=== PATIENT | female | born 1960 | race Caucasian/White ===

== ENCOUNTER 2016-06-27 19:42 | Emergency (ER) | payer SELFPAY ==
[2016-06-27 19:57] VITALS: BP 140/73
[2016-06-27] MEDS ORDERED: Ketorolac 60 MG/2 ML SDV IM ONE (20:30)
[2016-06-27] MEDS ORDERED: Ketorolac 30 MG/ML SDV ONE (20:34)
--- NOTE | 2016-06-28 00:15 | ER ---
CHIEF COMPLAINT: The patient enters the ER [facility] with a chief complaint of headache. She does have a history of headaches. She has not been officially diagnosed with migraines. HISTORY OF PRESENT ILLNESS: As above, history of headaches, not diagnosed with migraine. She does state that she gets a daily headache; however, she has not had a severe headache since at least January. Today, this headache has been going on for about 24 hours. There was no specific event that triggered this that she is aware of. There was no aura that preceded her headache. Her headache is described as frontal and it is bilateral. She takes Excedrin for migraines when her headaches begin, they are usually effective. However, this headache did not respond to that. She did have some Fiorinal around the house that was prescribed about 6 months ago, and she took that again with no relief, so she came to the emergency room [facility]. She has a history of being JU positive. She has had a history of colitis in the past. She is up to date with her colonoscopy. She has not been up to date with her mammogram, she is about a year behind; she will follow up on this on her own. REVIEW OF SYSTEMS: GENERAL: She denies any fever, weight loss, or fatigue. HEENT: Eyes, denies any changes in vision except currently with her headaches; bright lights increase her pain. Ears, nose, and throat; she denies any ear pain, throat pain, or nasal congestion. CARDIOVASCULAR: Denies any chest pain or palpitations. RESPIRATORY: Denies any cough or shortness of breath. GI: Denies any vomiting, diarrhea, constipation, or heartburn. She does have some nausea associated with her headache. : She denies any dysuria. MUSCULOSKELETAL: Denies any joint pain or inflammation. SKIN: Denies any rashes or sores. NEUROLOGIC: Denies any focal weakness or numbness. PSYCHIATRIC: She denies any problems with anxiety or depression. PHYSICAL EXAMINATION: GENERAL: A well-developed, well-nourished female. Alert and oriented x3. In mild-to- moderate distress from headache. VITAL SIGNS: Vital signs upon admission show a blood pressure of 140/73. She is afebrile. She has a pulse of 73 and oxygen saturation 99% on room air. HEENT: Eyes show equal ocular motions intact. Pupils are equally round, reactive to light. Discs are benign. Ears, nose, and throat, TMs are normal. Throat is clear. NECK: No JVD. No bruits. No masses. No thyromegaly. LYMPH: No adenopathy. LUNGS: Clear. HEART: Regular rate and rhythm. No murmurs, rubs, or gallops. ABDOMEN: Soft and benign. No mass or organomegaly. ORTHOPEDICS: Normal gait. Normal muscle tone and strength. No joint inflammation. No restriction of motion. SKIN: No rashes or sores. NEUROLOGIC: Cranial nerves 2-12 to be intact. She has no focal neurologic abnormalities. PSYCHIATRIC: Normal judgment and insight. Memory is intact. Mood is appropriate. ASSESSMENT: 1. Recurrent headaches. 2. JU positive. 3. History of fatty liver with history of atherosclerosis. PLAN: The patient states that she has had an MRI in the past; I do not see this report. She has had a negative CAT scan for her headaches. I went through her lab work in clinic and through the hospital, I do not see baseline cholesterol even though she has some atherosclerotic changes on prior CT scans and a fatty liver as well. So, we will get a fasting cholesterol in the morning. I am going to ask her to get a TSH for both her headaches and her presumed hyperlipidemia. I will repeat her JU profile. Her JU has been positive in the past and also get a sedimentation rate at this time. I also want to get a baseline UA to make sure there are no underlying renal complaints. She has had a history of kidney stones that were calcium oxalate in the past. We will obtain a baseline CBC and BMP as well. I started the patient on Topamax 25 mg p.o. at bedtime for headache prevention, and I will have her follow up in clinic in about 2 weeks to discuss her lab work and if necessary increase her Topamax. GEOVANNY/DELANEY /[id number]
== END 2016-06-27 21:10 | disposition home or self-care (01) ==
LOC: LB.ED 19:42
DX: R51 Headache (principal)
CPT/HCPCS: 96372; 99283; J1885

== ENCOUNTER 2017-02-13 17:48 | Emergency (ER) | payer OTHER ==
[2017-02-13] MEDS ORDERED: Acetaminophen/HYDROcodone 325-5 MG Tab ONE (18:00)
[2017-02-13 18:02] VITALS: BP 154/65
--- NOTE | 2017-02-13 18:03 | EDM.PDOC ---
ED HPI GENERAL MEDICAL PROBLEM - General Chief Complaint: General Stated Complaint: FELL ON ICE Time Seen by Provider: 02/13/17 17:50 Source of Information: Reports: Patient History Limitations: Reports: No Limitations - History of Present Illness INITIAL COMMENTS - FREE TEXT/NARRATIVE: According to patient she claims that he was at work in [place] and she came out to the parking lot around 4:30 PM and slipped on ice and fell forward and landed on the ground. She felt sharp pain in the palm of her left hand. Since then cannot make a fist of left hand. Also complains of pain over the metacarpals of left hand. No swelling or bruising of the hand. presently rat her pain at 6/10. No other injures. Onset: Today Onset Date: 02/13/17 Onset Time: 16:30 Location: Reports: Upper Extremity, Left Quality: Reports: Ache Severity: Moderate Improves with: Reports: None Worsens with: Reports: None Associated Symptoms: Denies: Confusion, Chest Pain, Cough, Diaphoresis, Fever/ Chills, Headaches, Nausea/Vomiting, Rash, Shortness of Breath, Syncope, Weakness - Related Data Allergies Allergy/AdvReac Type Severity Reaction Status Date / Time corn meal Allergy Unknown Hives Uncoded 06/28/16 11:27 Home Meds: Home Meds Codeine/Butalbital/ASA/Caffein [Ascomp with Codeine] 1 each PO Q6HR PRN [History] Omeprazole 20 mg PO DAILY 08/23/15 [History] Ranitidine HCl [Zantac] 150 mg PO BID 08/23/15 [History] Acetaminophen/Caffeine [Excedrin Tension Headache] 1 tab PO Q6HR PRN 12/01/15 [ History] Past Medical History HEENT History: Reports: Impaired Vision Gastrointestinal History: Reports: GERD, Other (See Below) Other Gastrointestinal History: has been having very freq diarrheal stools Genitourinary History: Reports: 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: Neurological History: Reports: Headaches, Chronic, Migraines - Infectious Disease History Infectious Disease History: Reports: Chicken Pox, Measles, Mumps - Past Surgical History Female Surgical History: Reports: Section, Endometrial Ablation Social & Family History - Family History Family Medical History: Noncontributory - Tobacco Use Smoking Status *Q: Former Smoker Years of Tobacco use: 2 Packs/Tins Daily: 0.5 Used Tobacco, but Quit: Yes Month Tobacco Last Used: 1978 Second Hand Smoke Exposure: No - Caffeine Use Caffeine Use: Reports: Coffee Caffeine Use Comment: Occasional - Alcohol Use Days Per Week of Alcohol Use: 0 Number of Drinks Per Day: 1 Total Drinks Per Week: 0 - Recreational Drug Use Recreational Drug Use: No ED ROS GENERAL - Review of Systems Review Of Systems: See Below Constitutional: Denies: Fever, Chills HEENT: Denies: Rhinitis, Sinus Problem, Throat Pain, Throat Swelling Respiratory: Denies: Cough, Sputum Cardiovascular: Denies: Chest Pain, Lightheadedness GI/Abdominal: Denies: Abdominal Pain, Nausea, Vomiting : Denies: Flank Pain, Frequency 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: Reports: Hand Pain. Denies: Joint Pain, Joint Swelling Skin: Denies: Bruising, Pruritis, Rash ED EXAM, GENERAL - Physical Exam Exam: See Below Exam Limited By: No Limitations General Appearance: Alert, WD/WN, No Apparent Distress Eye Exam: Bilateral Eye: EOMI, PERRL Ears: Normal External Exam, Normal Canal, Hearing Grossly Normal, Normal TMs Ear Exam: Bilateral Ear: Auricle Normal, Canal Normal, TM normal Nose: Normal Inspection, Normal Mucosa, No Blood Throat/Mouth: Normal Inspection, Normal Lips, Normal Teeth, Normal Gums, Normal Oropharynx, Normal Voice, No Airway Compromise Head: Atraumatic, Normocephalic Neck: Normal Inspection, Supple, Non-Tender, Full Range of Motion Respiratory/Chest: No Respiratory Distress, Lungs Clear, Normal Breath Sounds, No Accessory Muscle Use, Chest Non-Tender Cardiovascular: Normal Peripheral Pulses, Regular Rate, Rhythm, No Edema, No Gallop, No JVD, No Murmur, No Rub Extremities: Normal Inspection, Normal Range of Motion, Other. No: Joint Swelling (left hand: ther eis n obvious deformity or swelling of the finger or hand. Pt cannot make fist. Tender over the 3rd and 4th metacarpals of left hand. no crepitus felt.) Neurological: Alert, Oriented Course - Vital Signs Text/Narrative:: Xray of left hand done in the emergency room today appears normal. She basically has pain from suddenly impact of the hand against the ground. Advised to alternate warm and cold every 2-3 hrs. Pt has severe gastritis. Hence I have given her vicodin from the emergency room to use every 6 hrs as needed for pain. the pain should gradually improve. Okay to use the hand. Followup in clinic if not better in 1-2 days. Last Recorded V/S: Last Vital Signs Temp Pulse 63 02/13/17 17:56 Resp BP 154/65 H 02/13/17 17:56 Pulse Ox 98 02/13/17 17:56 - Orders/Labs/Meds Orders: Active Orders 24 hr Category Date Time Status Hand Comp Min 3V Lt [CR] Stat Exams 02/13/17 17:57 Ordered Departure - Departure Time of Disposition: 18:30 Disposition: Home, Self-Care 01 Condition: Fair Clinical Impression: Hand pain, left - Discharge Information Instructions: Acetaminophen; Hydrocodone tablets or capsules Referrals: PCP,None [Primary Care Provider] - Forms: ED Department Discharge Additional Instructions: Activity as tolerated. Work on increasing movement of fingers to affected hand. May apply heat and ice, alternating, intermittently to help with swelling and pain present. Take provided Vicodin as directed: 1 tablet by mouth every 6 hours as needed for pain. Follow up with regular provider as needed. Call with any questions. - Problem List & Annotations (1) Hand pain, left SNOMED Code(s): 17318917 Code(s): M79.642 - PAIN IN LEFT HAND Status: Acute Current Visit: Yes - Problem List Review Problem List Initiated/Reviewed/Updated: Yes - My Orders Last 24 Hours: My Active Orders 02/13/17 17:57 Hand Comp Min 3V Lt [CR] Stat - Assessment/Plan Last 24 Hours: My Active Orders 02/13/17 17:57 Hand Comp Min 3V Lt [CR] Stat Assessment:: Left hand pain Plan: Xray of left hand done in the emergency room today appears normal. She basically has pain from suddenly impact of the hand against the ground. Advised to alternate warm and cold every 2-3 hrs. Pt has severe gastritis. Hence I have given her vicodin from the emergency room to use every 6 hrs as needed for pain. the pain should gradually improve. Okay to use the hand. Followup in clinic if not better in 1-2 days.
--- NOTE | 2017-02-13 20:24 | CR ---
DATE OF SERVICE: 02/13/2017 CLINICAL DATA: Left hand pain. LEFT HAND: There are mild osteoarthritic changes involving multiple joints. No acute fracture or dislocation. No lytic or blastic bone lesions. [id number] [facility]
== END 2017-02-13 18:33 | disposition home or self-care (01) ==
LOC: LB.ED 17:48
DX: M79.642 Pain in left hand (principal); K29.70 Gastritis, unspecified, without bleeding; Z91.018 Allergy to other foods; Z87.891 Personal history of nicotine dependence; W00.0XXA Fall on same level due to ice and snow, initial encounter
CPT/HCPCS: 73130; 99283; A9270

== ENCOUNTER 2018-06-23 17:26 | Observation (INO) | payer BC ==
[2018-06-23] MEDS ORDERED: Lidocaine 2% 10 ML Amp ONE (18:00)
[2018-06-23] MEDS ORDERED: HYDROmorphone 2 MG/ML SDV IM ONE (18:01)
[2018-06-23] MEDS ORDERED: Ondansetron 4 MG/2 ML SDV IM ONE (18:02)
--- NOTE | 2018-06-23 18:21 | EDM.PDOC ---
ED HPI GENERAL MEDICAL PROBLEM - General Stated Complaint: TOOTH PAIN Time Seen by Provider: 06/23/18 17:45 Source of Information: Reports: Patient History Limitations: Reports: No Limitations - History of Present Illness INITIAL COMMENTS - FREE TEXT/NARRATIVE: According to patient she has been having right upper molar toothache since yesterday. Pt claims that pain has gradually got worse today, and has been rating it at 10/10 constant. Claims she has had some fever today. No facial swelling. No earache. Pt claims she has been using benzocaine Oragel and Listerine mouth wash and is not helping. Pt claims she has been feeling sick and vomiting since today afternoon.Not able to keep anything down. Pt constantly wretching in the emergency room. Epigastric discomfort. Onset: Gradual Onset Date: 06/22/18 Duration: Getting Worse Location: Reports: Other (tooth ache) Severity: Severe Improves with: Reports: None Worsens with: Reports: None Associated Symptoms: Reports: Fever/Chills, Nausea/Vomiting. Denies: Confusion , Chest Pain, Cough, Diaphoresis, Headaches, Rash, Seizure, Shortness of Breath , Syncope, Weakness - Related Data Allergies Allergy/AdvReac Type Severity Reaction Status Date / Time corn meal Allergy Unknown Hives Uncoded 06/28/16 11:27 Home Meds: Home Meds Codeine/Butalbital/ASA/Caffein [Ascomp with Codeine] 1 each PO Q6HR PRN [History] Omeprazole 20 mg PO DAILY 08/23/15 [History] Ranitidine HCl [Zantac] 150 mg PO BID 08/23/15 [History] Acetaminophen/Caffeine [Excedrin Tension Headache] 1 tab PO Q6HR PRN 12/01/15 [ History] Past Medical History HEENT History: Reports: Impaired Vision Gastrointestinal History: Reports: GERD Other Gastrointestinal History: has been having very freq diarrheal stools Genitourinary History: Reports: Renal Calculus, Urinary Incontinence 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: 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 History: Reports: Other (See Below) Other 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 History: Hx back injury Neurological History: Reports: Headaches, Chronic, Migraines - Infectious Disease History Infectious Disease History: Reports: Chicken Pox, Measles, Mumps - Past Surgical History Female Surgical History: Reports: Section, Endometrial Ablation Social & Family History - Family History Family Medical History: Noncontributory - Caffeine Use Caffeine Use: Reports: Coffee Caffeine Use Comment: Occasional ED ROS GENERAL - Review of Systems Review Of Systems: See Below Constitutional: Denies: Fever, Chills HEENT: Reports: Dental Pain. Denies: Ear Pain, Rhinitis, Throat Pain, Throat Swelling Respiratory: Denies: Shortness of Breath, Cough, Sputum Cardiovascular: Denies: Chest Pain, Lightheadedness GI/Abdominal: Reports: Vomiting. Denies: Abdominal Pain, Constipation, Diarrhea , Nausea : Denies: Dysuria, Frequency 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: Denies: Joint Pain, Joint Swelling Skin: Denies: Bruising, Pruritis, Rash ED EXAM, GENERAL - Physical Exam Exam: See Below Exam Limited By: No Limitations General Appearance: Alert, WD/WN, Moderate Distress Eye Exam: Bilateral Eye: EOMI, PERRL Ears: Normal External Exam, Normal Canal, Hearing Grossly Normal, Normal TMs Ear Exam: Bilateral Ear: Auricle Normal, Canal Normal, TM normal Nose: Normal Inspection, Normal Mucosa, No Blood Throat/Mouth: Normal Inspection, Normal Lips, Other (poor oral hygiene. The right upper molar hs severe peridontal diseas. gums swollen and the root appears exposed. Also there is caries of the the tooth.) Head: Atraumatic, Normocephalic. No: Facial Swelling, Facial Tenderness Neck: Normal Inspection, Supple, Non-Tender, Full Range of Motion Respiratory/Chest: No Respiratory Distress, Lungs Clear, Normal Breath Sounds, No Accessory Muscle Use, Chest Non-Tender Cardiovascular: Normal Peripheral Pulses, Regular Rate, Rhythm, No Edema, No Gallop, No JVD, No Murmur, No Rub GI/Abdominal: Normal Bowel Sounds, Soft, No Organomegaly, No Distention, No Abnormal Bruit, No Mass, Tender (epigastric discomfort). No: Guarding, Rigid, Rebound Extremities: Normal Inspection, Normal Range of Motion, Non-Tender, Normal Capillary Refill, No Pedal Edema Neurological: Alert, Oriented Course - Vital Signs Text/Narrative:: Pt has infected caries of the right upper molar with periodontal disease with severe tooth pain. She did receive Dilaudid 1mg IM along with zofran 4mg in the emergency room. Pt still in pain. Pt has very poor oral hygiene, with periodontal disease of the right upper molar with caries. There is possible exposure of the root causing her pain. Pt white count is normal at 3.7. She probably has pain induced vomiting. Her BMP shows normal creat and BUN, but her potassium is low at 2.7. Hence patient has been admitted for observation for potassium replenishment over night. Will started her on NACL with K 40 meq at 125cc/hr. Also will have her on Dilaudid every 6 hrs and Zofran for nausea. As she has been vomiting all day and her stomach is empty, will have Protonix 40mg Iv given. Will encourage oral fluids as tolerated. Anticipate discharge in am. - Orders/Labs/Meds Orders: Active Orders 24 hr Category Date Time Status BASIC METABOLIC PANEL,BMP [CHEM] Stat Lab 06/23/18 18:05 Received Labs: Laboratory Tests 06/23/18 Range/Units 18:05 WBC 3.6 L D (4.0-11.0) K/uL RBC 5.01 (3.80-5.80) M/uL Hgb 15.4 (11.5-16.5) g/dL Hct 45.7 (37.0-47.0) % MCV 91 (76-96) fL MCH 30.7 (27.0-32.0) pg MCHC 33.7 (31.0-35.0) g/dL RDW 13.1 (11.0-16.0) % Plt Count 196 D (150-500) K/uL MPV 10.0 (6.0-10.0) fL Neut % (Auto) 84.0 H (45.0-70.0) % Lymph % (Auto) 14.8 L (20.0-40.0) % [place] % (Auto) 0.6 L (3.0-10.0) % Eos % (Auto) 0.3 L (1.0-5.0) % Baso % (Auto) 0.3 (0.0-0.5) % Neut # (Auto) 3.01 (2.00-7.50) K/uL Lymph # (Auto) 0.53 L (1.50-4.00) K/uL [place] # (Auto) 0.02 L (0.20-0.80) K/uL Eos # (Auto) 0.01 L (0.04-0.40) K/uL Baso # (Auto) 0.01 L (0.02-0.10) K/uL Meds: Medications Discontinued Medications Generic Name Dose Route Start Last Admin Trade Name Teofilo PRN Reason Stop Dose Admin Hydromorphone HCl 1 mg 06/23/18 18:01 06/23/18 18:17 Dilaudid IM 06/23/18 18:02 1 mg ONETIME ONE Administration Ondansetron HCl 4 mg 06/23/18 18:02 06/23/18 18:16 Zofran IM 06/23/18 18:03 4 mg ONETIME ONE Administration Departure - Departure Time of Disposition: 18:30 Disposition: Refer to Observation Condition: Fair Clinical Impression: Hypokalemia due to loss of potassium, Tooth ache - Discharge Information *PRESCRIPTION DRUG MONITORING PROGRAM REVIEWED*: Not Applicable *COPY OF PRESCRIPTION DRUG MONITORING REPORT IN PATIENT [place]ANTEL[place]: Not Applicable - Problem List & Annotations (1) Hypokalemia due to loss of potassium SNOMED Code(s): 07782839 Code(s): E87.6 - HYPOKALEMIA Status: Acute (2) Tooth ache SNOMED Code(s): 16451506 Code(s): K08.89 - OTHER SPECIFIED DISORDERS OF TEETH AND SUPPORTING STRUCTURES Status: Acute - Problem List Review Problem List Initiated/Reviewed/Updated: Yes - My Orders Last 24 Hours: My Active Orders 06/23/18 18:05 BASIC METABOLIC PANEL,BMP [CHEM] Stat - Assessment/Plan Last 24 Hours: My Active Orders 06/23/18 18:05 BASIC METABOLIC PANEL,BMP [CHEM] Stat Assessment:: Right upper molar tooth ache Pain induced vomiting with hypokalemia Plan: Pt has infected caries of the right upper molar with periodontal disease with severe tooth pain. She did receive Dilaudid 1mg IM along with zofran 4mg in the emergency room. Pt still in pain. Pt has very poor oral hygiene, with periodontal disease of the right upper molar with caries. There is possible exposure of the root causing her pain. Pt white count is normal at 3.7. She probably has pain induced vomiting. Her BMP shows normal creat and BUN, but her potassium is low at 2.7. Hence patient has been admitted for observation for potassium replenishment over night. Will started her on NACL with K 40 meq at 125cc/hr. Also will have her on Dilaudid every 6 hrs and Zofran for nausea. As she has been vomiting all day and her stomach is empty, will have Protonix 40mg Iv given. Will encourage oral fluids as tolerated. Anticipate discharge in am.
[2018-06-23] MEDS ORDERED: HYDROmorphone 2 MG/ML Syringe IV PRN (18:44)
[2018-06-23] MEDS ORDERED: Promethazine 12.5 MG in Sodium Chloride 0.9% 50 ML IV ONE (19:00)
[2018-06-23] MEDS: Pantoprazole 40 MG in Sodium Chloride 0.9% 100 ML IV ONE ×2 (19:30→20:02)
[2018-06-23] MEDS: Sodium Chloride 0.9% with KCl 1,000 ML IV SCH (19:45)
[2018-06-23] MEDS: Ondansetron 4 MG/2 ML SDV IVPUSH SCH (20:04)
[2018-06-23] MEDS: Ketorolac 30 MG/ML SDV IVPUSH PRN (22:51)
[2018-06-24] MEDS: Ondansetron 4 MG/2 ML SDV IVPUSH SCH ×3 (01:12→13:00)
[2018-06-24] MEDS: Sodium Chloride 0.9% 10 ML Syringe FLUSH PRN ×2 (01:12→03:47)
[2018-06-24] MEDS: Sodium Chloride 0.9% 1,000 ML IV ONE ×2 (02:25→12:45)
[2018-06-24] MEDS ORDERED: Levofloxacin/Dextrose 5%-Water 100 ML IV ONE (03:10)
[2018-06-24] MEDS: Levofloxacin/Dextrose 5%-Water 500 MG in Premix Bag 1 BAG IV ONE ×2 (03:17→03:49)
[2018-06-24] MEDS ORDERED: Levofloxacin/Dextrose 5%-Water 500 MG in Premix Bag 1 BAG IV ONE (03:48)
[2018-06-24] MEDS: Sodium Chloride 0.9% with KCl 1,000 ML IV SCH (04:26)
[2018-06-24] MEDS: Ketorolac 30 MG/ML SDV IVPUSH PRN (07:53)
--- NOTE | 2018-06-24 08:28 | CR ---
Date of Service: 06/24/18 Clinical Data: PA AND LATERAL CHEST No priors. The heart size is normal. The lungs are clear. No pneumothorax. No pleural effusions. No evidence of acute intrathoracic disease. [id number] [facility]
--- NOTE | 2018-06-24 08:40 | CT ---
Date of Service: 06/24/18 Clinical Data: UNENHANCED ABDOMEN AND PELVIC CT: Multislice acquisition through the abdomen and pelvis without IV or oral contrast was performed. Comparison is made to a prior unenhanced abdomen and pelvic CT dated 12/07/15. There are linear densities in both lung bases consistent with linear atelectasis or fibrosis. The lung bases are otherwise clear. The heart size is normal. No pericardial effusion. The unenhanced liver appears normal. No focal hepatic lesions. The gallbladder is mildly distended. No calcified gallstones. No pericholecystic fluid. The spleen appears normal. The pancreas appears normal. The right and left adrenals appear normal. The right and left kidneys appear normal. No nephrocalcinosis or nephrolithiasis. No hydronephrosis or hydroureter. The bladder is fluid filled and appears normal. No evidence of appendicitis. There is mild diverticulosis of the sigmoid colon. No evidence of diverticulitis. There is moderate amount of stool noted within the sigmoid colon and rectum. There is apparent mild mural thickening of the ascending and transverse colon. This is probably related to nondistention. Colitis should at least be considered. No free air. No free fluid. No dilated loops of bowel. No adenopathy. No aortic aneurysm. There is a ventral hernia within the midline of the anterior abdominal wall above the level of the umbilicus containing fat. No other significant findings. [id number] [facility]
--- NOTE | 2018-06-24 12:20 | CT ---
DATE OF SERVICE: 06/24/18 CLINICAL DATA: Right maxillary pain. FACIAL CT: Multislice axial acquisition was performed. Axial images and sagittal and coronal reformations are reviewed. The right maxillary sinus is filled with heterogenous soft tissue density material that does extend into the nasal cavity on the right consistent with sinusitis or an antrochoanal polyp. The right ethmoid sinuses are also partially opacified and contain a couple of air-fluid levels consistent with sinusitis. There is some mucosal thickening of the right frontal sinus. The left maxillary and sphenoid sinuses are clear. There is minimal deviation of the nasal septum to the left. There is soft tissue swelling of the middle and inferior turbinates. No osseous abnormalities. The globes and orbital contents appear intact. No other significant findings. [id number] [facility]
[2018-06-24] MEDS ORDERED: Sodium Chloride 0.9% 1,000 ML IV SCH (12:30)
[2018-06-24] MEDS ORDERED: Ampicillin/Sulbactam Na 3 GM in Sodium Chloride 0.9% 100 ML IV ONE (12:30)
[2018-06-24] MEDS ORDERED: Ampicillin/Sulbactam Na 3 GM Vial ONE (12:33)
--- NOTE | 2018-06-24 13:23 | PCM.DCSUM1 ---
Discharge Summary - Hospital Course Free Text/Narrative:: Pt was admitted last evening with diagnosis of vomiting with hypokalemia, with right upper molar dental pain. Pt's initial white count was 3.7K with normal rest of the CBC. Also her BMP was stable other than potassium of 2.7, which probably was related to her vomiting. Pt was afebrile. Pt was started on NACL with potassium 40meq at 125cc/hr.Also patient was placed on toradol 30mmg IV TID and dilaudid 0.5mg TID for pain control. Plan was to correct her Potassium and discharge in Am for dental evaluation. Apparently, on 06/24/18, around 2AM in the morning patient had her Blood pressure drop to 84/48mmhg, patient was alert and oriented, but pressure was not improving. She did receive bolus of 1 litre NS, and did get Chest x-ray, Ct abdomen ( As patient had epigastric pain) , UA, Blood cultures and lactic acid, looking for any other source of infection. Apparently all the workup was negative. And her lactic acid was mildly elevated at 1.94. Pt was continued on fluids. Also she did receive levaquin 500mg IV. Apparently on morning rounds, pt claims she feels fine, but very tired and exhausted, still rating her pain at 5/10 in her right upper molar. Vitals stable other then her BP is still running low around 90/50mmhg. My first feeling was , hypotension related to pain meds. So IV pain meds were discontinued. As the only part of the body not worked up was her face with her only c/o being right jaw pain, I did order yong-maxillary CT and also repeat CBC and Lactic acid. Pt's CBC was up from 3.7K to 34K and also her differential showed neutro 66% with 30 % bandemia. Also her facial CT shows right dental abscess in the right upper molar region. Apparently patient has developed sepsis from the right molar dental abscess. Results discussed with patient and spouse, recommended transfer to higher level or care. She was given bolus of NS 1 litre and started on NS at 200cc/hr.Also started on Unasyn 3gm IV. I did contact [facility] and discuss patient with hospitalist Dr. Lucero and ENT surgeon Dr. Santana. Apparently Dr. Santana's recommendation was to transfer patient to a facility with oral-maxillary surgeon. I did contact [facility] and discuss patient with Dr. Reid, the hospitalist international organizer. He did agree to accept patient. Pt will be transferred by [facility].Pt is hemodynamically stable on Iv fluids at the time of transfer. Further care per Dr. Reid. Brief History: Presented to [facility] room yesterday with right sided dental pain with vomiting. Kindly see H&P for details. Diagnosis: Stroke: No - Discharge Data Discharge Date: 06/24/18 Discharge Disposition: DC/Tfer to Acute Hospital 02 Condition: Good - Discharge Diagnosis/Problem(s) (1) Hypokalemia due to loss of potassium SNOMED Code(s): 62725090 ICD Code: E87.6 - HYPOKALEMIA Status: Acute Current Visit: No (2) Tooth ache SNOMED Code(s): 92230258 ICD Code: K08.89 - OTHER SPECIFIED DISORDERS OF TEETH AND SUPPORTING STRUCTURES Status: Acute Current Visit: No (3) Sepsis SNOMED Code(s): 35391304 ICD Code: A41.9 - SEPSIS, UNSPECIFIED ORGANISM Status: Acute Current Visit: Yes (4) Dental abscess SNOMED Code(s): 673657683 ICD Code: K04.7 - PERIAPICAL ABSCESS WITHOUT SINUS Status: Acute Current Visit: Yes - Patient Instructions Diet: NPO - Discharge Plan *PRESCRIPTION DRUG MONITORING PROGRAM REVIEWED*: Not Applicable *COPY OF PRESCRIPTION DRUG MONITORING REPORT IN PATIENT SHANTELLE: Not Applicable Forms: ED Department Discharge Referrals: PCP,None [Primary Care Provider] - - Discharge Summary/Plan Comment DC Time >30 min.: Yes Discharge Summary/Plan Comment: Transferred to [facility] by [employer]. - General Info Subjective Update: Pt claims she feel weak and tired. Still rating her pain at 5/10 in her right jaw. Afebrile. Functional Status: Reports: Urinating - Review of Systems General: Reports: Weakness, Fatigue, Malaise. Denies: Fever, Night Sweats, Appetite HEENT: Reports: Other (dental pain). Denies: Headaches, Sinus Congestion, Sore Throat, Rhinitis Pulmonary: Denies: Shortness of Breath, Cough, Sputum, Hemoptysis Cardiovascular: Denies: Chest Pain, Lightheadedness Gastrointestinal: Reports: Vomiting. Denies: Abdominal Pain, Diarrhea, Nausea Genitourinary: Denies: Dysuria, Frequency, Burning 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: Denies: Shoulder Pain, Joint Pain, Joint Swelling Skin: Denies: Dryness, Bruising, Pruritis Neurological: Denies: Confusion, Dizziness, Headache, Numbness, Tingling - Patient Data Vitals - Most Recent: Last Vital Signs Temp 98.7 F 06/24/18 07:52 Pulse 106 H 06/24/18 07:52 Resp 17 06/24/18 07:52 BP 90/54 L 06/24/18 07:52 Pulse Ox 96 06/24/18 07:52 Weight - Most Recent: 66.497 kg I&O - Last 24 hours: Intake & Output 06/23/18 06/24/18 06/24/18 22:59 06:59 14:59 Intake Total 2975 Output Total 350 Balance 2625 Lab Results - Last 24 hrs: Laboratory Results - last 24 hr 06/23/18 06/23/18 06/24/18 Range/Units 18:05 18:05 01:50 WBC 3.6 L D (4.0-11.0) K/uL RBC 5.01 (3.80-5.80) M/uL Hgb 15.4 (11.5-16.5) g/dL Hct 45.7 (37.0-47.0) % MCV 91 (76-96) fL MCH 30.7 (27.0-32.0) pg MCHC 33.7 (31.0-35.0) g/dL RDW 13.1 (11.0-16.0) % Plt Count 196 D (150-500) K/uL MPV 10.0 (6.0-10.0) fL Neut % (Auto) 84.0 H (45.0-70.0) % Lymph % (Auto) 14.8 L (20.0-40.0) % [place] % (Auto) 0.6 L (3.0-10.0) % Eos % (Auto) 0.3 L (1.0-5.0) % Baso % (Auto) 0.3 (0.0-0.5) % Neut # (Auto) 3.01 (2.00-7.50) K/uL Lymph # (Auto) 0.53 L (1.50-4.00) K/uL [place] # (Auto) 0.02 L (0.20-0.80) K/uL Eos # (Auto) 0.01 L (0.04-0.40) K/uL Baso # (Auto) 0.01 L (0.02-0.10) K/uL Add Manual Diff Neutrophils % (Manual) (45.0-70.0) % Band Neutrophils % % Lymphocytes % (Manual) (20.0-40.0) % Monocytes % (Manual) (3.0-10.0) % Platelet Estimate Sodium 146 H (136-145) mmol/L Potassium 2.7 L* D (3.5-5.1) mmol/L Chloride 104 (98-107) mmol/L Carbon Dioxide 20.8 L D (21.0-32.0) mmol/L Anion Gap 23.9 H (5.0-15.0) mmol/L BUN 17 (8-26) mg/dL Creatinine 0.98 (0.55-1.02) mg/dL Est Cr Clr Drug Dosing TNP Estimated GFR (MDRD) 58 L (>60) MLS/MIN BUN/Creatinine Ratio 17.3 (6-25) Glucose 141 H D (74-100) mg/dL Lactic Acid (0.90-1.70) mmol/L Calcium 8.9 (8.5-10.1) mg/dL Troponin I < 0.017 (0.000-0.060) ng/mL Urine Color Urine Appearance (CLEAR) Urine pH (5.0-8.0) Ur Specific [place] (1.003-1.030) Urine Protein (NEGATIVE) mg/dL Urine Glucose (UA) (NEGATIVE) mg/dL Urine Ketones (NEGATIVE) mg/dL Urine Occult Blood (NEGATIVE) Urine Nitrite (NEGATIVE) Urine Bilirubin (NEGATIVE) Urine Urobilinogen (0.2-1.0) E.U./dL Ur Leukocyte Esterase (NEGATIVE) Urine RBC /HPF Urine WBC /HPF Ur Squamous Epith Cells /HPF Urine Bacteria /HPF Hyaline Casts /HPF 06/24/18 06/24/18 06/24/18 Range/Units 01:50 02:31 07:10 WBC (4.0-11.0) K/uL RBC (3.80-5.80) M/uL Hgb (11.5-16.5) g/dL Hct (37.0-47.0) % MCV (76-96) fL MCH (27.0-32.0) pg MCHC (31.0-35.0) g/dL RDW (11.0-16.0) % Plt Count (150-500) K/uL MPV (6.0-10.0) fL Neut % (Auto) (45.0-70.0) % Lymph % (Auto) (20.0-40.0) % [place] % (Auto) (3.0-10.0) % Eos % (Auto) (1.0-5.0) % Baso % (Auto) (0.0-0.5) % Neut # (Auto) (2.00-7.50) K/uL Lymph # (Auto) (1.50-4.00) K/uL [place] # (Auto) (0.20-0.80) K/uL Eos # (Auto) (0.04-0.40) K/uL Baso # (Auto) (0.02-0.10) K/uL Add Manual Diff Neutrophils % (Manual) (45.0-70.0) % Band Neutrophils % % Lymphocytes % (Manual) (20.0-40.0) % Monocytes % (Manual) (3.0-10.0) % Platelet Estimate Sodium 145 (136-145) mmol/L Potassium 4.3 D (3.5-5.1) mmol/L Chloride 108 H (98-107) mmol/L Carbon Dioxide 21.5 (21.0-32.0) mmol/L Anion Gap 19.8 H (5.0-15.0) mmol/L BUN 22 D (8-26) mg/dL Creatinine 1.07 H (0.55-1.02) mg/dL Est Cr Clr Drug Dosing 47.99 Estimated GFR (MDRD) 53 L (>60) MLS/MIN BUN/Creatinine Ratio 20.6 (6-25) Glucose 124 H (74-100) mg/dL Lactic Acid 1.94 H (0.90-1.70) mmol/L Calcium 7.4 L (8.5-10.1) mg/dL Troponin I (0.000-0.060) ng/mL Urine Color Yellow Urine Appearance Clear (CLEAR) Urine pH 5.5 (5.0-8.0) Ur Specific [place] 1.020 (1.003-1.030) Urine Protein 100 H (NEGATIVE) mg/dL Urine Glucose (UA) Negative (NEGATIVE) mg/dL Urine Ketones Trace H (NEGATIVE) mg/dL Urine Occult Blood Negative (NEGATIVE) Urine Nitrite Positive H (NEGATIVE) Urine Bilirubin Small H (NEGATIVE) Urine Urobilinogen 0.2 (0.2-1.0) E.U./dL Ur Leukocyte Esterase Negative (NEGATIVE) Urine RBC Not seen /HPF Urine WBC Not seen /HPF Ur Squamous Epith Cells Few /HPF Urine Bacteria Few /HPF Hyaline Casts Few /HPF 06/24/18 06/24/18 Range/Units 11:50 11:50 WBC 34.1 H* D (4.0-11.0) K/uL RBC 3.90 (3.80-5.80) M/uL Hgb 12.0 D (11.5-16.5) g/dL Hct 36.4 L D (37.0-47.0) % MCV 93 (76-96) fL MCH 30.8 (27.0-32.0) pg MCHC 33.0 (31.0-35.0) g/dL RDW 13.4 (11.0-16.0) % Plt Count 172 (150-500) K/uL MPV 10.3 H (6.0-10.0) fL Neut % (Auto) (45.0-70.0) % Lymph % (Auto) (20.0-40.0) % [place] % (Auto) (3.0-10.0) % Eos % (Auto) (1.0-5.0) % Baso % (Auto) (0.0-0.5) % Neut # (Auto) (2.00-7.50) K/uL Lymph # (Auto) (1.50-4.00) K/uL [place] # (Auto) (0.20-0.80) K/uL Eos # (Auto) (0.04-0.40) K/uL Baso # (Auto) (0.02-0.10) K/uL Add Manual Diff Yes Neutrophils % (Manual) 66.0 (45.0-70.0) % Band Neutrophils % 30.0 % Lymphocytes % (Manual) 1.0 L (20.0-40.0) % Monocytes % (Manual) 3.0 (3.0-10.0) % Platelet Estimate Adequate Sodium (136-145) mmol/L Potassium (3.5-5.1) mmol/L Chloride (98-107) mmol/L Carbon Dioxide (21.0-32.0) mmol/L Anion Gap (5.0-15.0) mmol/L BUN (8-26) mg/dL Creatinine (0.55-1.02) mg/dL Est Cr Clr Drug Dosing Estimated GFR (MDRD) (>60) MLS/MIN BUN/Creatinine Ratio (6-25) Glucose (74-100) mg/dL Lactic Acid 3.64 H (0.90-1.70) mmol/L Calcium (8.5-10.1) mg/dL Troponin I (0.000-0.060) ng/mL Urine Color Urine Appearance (CLEAR) Urine pH (5.0-8.0) Ur Specific [place] (1.003-1.030) Urine Protein (NEGATIVE) mg/dL Urine Glucose (UA) (NEGATIVE) mg/dL Urine Ketones (NEGATIVE) mg/dL Urine Occult Blood (NEGATIVE) Urine Nitrite (NEGATIVE) Urine Bilirubin (NEGATIVE) Urine Urobilinogen (0.2-1.0) E.U./dL Ur Leukocyte Esterase (NEGATIVE) Urine RBC /HPF Urine WBC /HPF Ur Squamous Epith Cells /HPF Urine Bacteria /HPF Hyaline Casts /HPF JOSE Results - Last 24 hrs: Microbiology 06/24/18 01:50 Influenza Type A Antigen Screen - Final Nasal, Unspecified NEGATIVE INFLUENZA A VIRUS AG Influenza Type B Antigen Screen - Final NEGATIVE INFLUENZA B VIRUS AG Med Orders - Current: Current Medications Hydromorphone HCl (Dilaudid) 1 mg IV Q6H PRN PRN Reason: Pain (severe 7-10) Potassium Chloride/Sodium Chloride (Normal Saline With 40 Meq Kcl) 1,000 mls @ 125 mls/hr IV ASDIRECTED KIMBERLEY Last Admin: 06/24/18 04:26 Dose: 125 mls/hr Sodium Chloride (Normal Saline) 1,000 mls @ 200 mls/hr IV ASDIRECTED KIMBERLEY Last Admin: 06/24/18 12:20 Dose: 200 mls/hr Ampicillin Sodium/Sulbactam (Sodium 3 gm/ Sodium Chloride) 100 mls @ 100 mls/ hr IV ONETIME ONE Stop: 06/24/18 13:29 Ketorolac Tromethamine (Toradol) 30 mg IVPUSH Q8H PRN PRN Reason: Pain Stop: 06/28/18 22:31 Last Admin: 06/24/18 07:53 Dose: 30 mg Ondansetron HCl (Zofran) 4 mg IVPUSH Q6H KIMBERLEY Last Admin: 06/24/18 09:05 Dose: 4 mg Sodium Chloride (Saline Flush) 10 ml FLUSH ASDIRECTED PRN PRN Reason: Keep Vein Open Last Admin: 06/24/18 01:12 Dose: 10 ml Discontinued Medications Ampicillin Sodium/Sulbactam Sodium (Unasyn) Confirm Administered Dose 3 gm .ROUTE .STK-MED ONE Stop: 06/24/18 12:34 Last Admin: 06/24/18 12:57 Dose: Not Given Hydromorphone HCl (Dilaudid) 1 mg IM ONETIME ONE Stop: 06/23/18 18:02 Last Admin: 06/23/18 18:17 Dose: 1 mg Pantoprazole Sodium 40 mg/ (Sodium Chloride) 100 mls @ 200 mls/hr IV .BOLUS ONE Stop: 06/23/18 19:20 Last Admin: 06/23/18 20:02 Dose: Not Given Promethazine HCl 12.5 mg/ (Sodium Chloride) 50.5 mls @ 200 mls/hr IV ONETIME ONE Stop: 06/23/18 19:15 Last Admin: 06/23/18 19:10 Dose: 200 mls/hr Sodium Chloride (Normal Saline) 1,000 mls @ 999 mls/hr IV .BOLUS ONE Stop: 06/24/18 02:39 Last Admin: 06/24/18 02:25 Dose: 999 mls/hr Levofloxacin/Dextrose 500 mg/ (Premix) 100 mls @ 100 mls/hr IV ONETIME ONE Stop: 06/24/18 04:03 Last Admin: 06/24/18 03:17 Dose: 100 mls/hr Levofloxacin/Dextrose (Levaquin In D5w 500 Mg/100 Ml) Confirm Administered Dose 100 mls @ as directed IV .STK-MED ONE Stop: 06/24/18 03:11 Last Admin: 06/24/18 03:41 Dose: Not Given Levofloxacin/Dextrose 500 mg/ (Premix) 100 mls @ 100 mls/hr IV ONETIME ONE Stop: 06/24/18 04:47 Last Admin: 06/24/18 03:52 Dose: Not Given Lidocaine HCl (Xylocaine-Mpf 2% (Sterile-Ruperto)) 10 ml .ROUTE .STK-MED ONE Stop: 06/23/18 18:01 Ondansetron HCl (Zofran) 4 mg IM ONETIME ONE Stop: 06/23/18 18:03 Last Admin: 06/23/18 18:16 Dose: 4 mg - Exam General: Reports: Alert, Oriented, Cooperative HEENT: Reports: Pupils Equal, Pupils Reactive, EOMI, Mucous Membr. Moist/[place], Other (No facial swelling . teeth exam unchange from yesterday. Right upper posterior molar very tender to percussion.) Neck: Reports: Supple Lungs: Reports: Clear to Auscultation, Normal Respiratory Effort Cardiovascular: Reports: Regular Rate, Regular Rhythm GI/Abdominal Exam: Normal Bowel Sounds, Soft, Non-Tender, No Organomegaly, No Distention, No Abnormal Bruit, No Mass, Pelvis Stable Extremities: Normal Inspection, Normal Range of Motion, Non-Tender, No Pedal Edema, Normal Capillary Refill Skin: Reports: Warm, Intact Neurological: Reports: No New Focal Deficit Psy/Mental Status: Reports: Alert
[2018-06-24 22:05] VITALS: BP 116/64
== END 2018-06-24 13:45 ==
LOC: LB.ED 17:26 → LB.MS 18:44 → UNDOADMOB 20:01 → LB.MS 20:01
PROVIDERS: ADMIT Family Medicine; ATTEND Family Medicine
DX: E87.6 Hypokalemia (principal); R11.10 Vomiting, unspecified; K08.89 Other specified disorders of teeth and supporting structures; K04.7 Periapical abscess without sinus; A41.9 Sepsis, unspecified organism; K21.9 Gastro-esophageal reflux disease without esophagitis; Z79.899 Other long term (current) drug therapy
CPT/HCPCS: 36415; 70486; 71046; 74176; 80048; 81001; 83605; 84484; 85025; 87040; 87804; 93005; 96365; 96366; 96368; 96372; 96374; 96375; 96376; 99284; C9113; G0378; J0295; J1170; J1885; J1956; J2405; J2550; J3480; J7030; J7050

== ENCOUNTER 2019-02-04 17:41 | Emergency (ER) | payer BC ==
[2019-02-04] MEDS ORDERED: Ketorolac 60 MG/2 ML SDV IM ONE (18:13)
[2019-02-04] MEDS ORDERED: Methocarbamol 500 MG Tab ONE (18:15)
[2019-02-04] MEDS ORDERED: Ketorolac 60 MG/2 ML SDV ONE (18:18)
[2019-02-04 19:17] VITALS: BP 117/75; PULSE 62
--- NOTE | 2019-02-04 19:58 | ER ---
HISTORY OF PRESENT ILLNESS: A 58-year-old lady here with complaints of pain involving the posterior chest wall, upper T-spine area. The patient states it has been bothering her for about a week. She has not had any falls or injuries. She notices that whenever she is pulling on something, it hurts in this area, and now today she started to develop a mild headache, so she thought she should come in for evaluation. 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 She has history of migraine headaches and has Fioricet that she takes for this. Otherwise, she has not been taking anything for this pain. OBJECTIVE: GENERAL APPEARANCE: The patient is awake and alert, in no obvious distress. VITAL SIGNS: Reviewed. She is afebrile. Blood pressure 122/82, O2 sats are 100, pulse is 61. CHEST: Examining the patient's posterior chest wall reveals skin is intact. There is no swelling or discoloration. The area of tenderness is involving the midline area roughly in the T3 or T4 area. There is pain and mild guarding with even light touch of this area. EXTREMITIES: The patient can move her arms without any difficulty and she can twist and turn which is mild discomfort. She states the only thing that causes any problems is when she is pulling on something. DIAGNOSIS: Muscle strain. TREATMENT PLAN: The patient will be given Toradol 60 mg IM here in the ER and Toradol tablets that she can get filled tomorrow 10 mg t.i.d. for 4 to 5 days. I will also put her on a muscle relaxer for a few days and she should see a chiropractor. Followup is p.rsophia CASTRO/DELANEY /[id number]
== END 2019-02-04 18:38 | disposition home or self-care (01) ==
LOC: LB.ED 17:41
DX: R07.89 Other chest pain (principal)
CPT/HCPCS: 96372; 99284; A9270; J1885

== ENCOUNTER 2019-12-27 12:15 | Emergency (ER) | payer BC ==
[2019-12-27 12:41] VITALS: BP 111/74; PULSE 83
[2019-12-27] MEDS ORDERED: Ketorolac 30 MG/ML SDV IVPUSH ONE (12:43)
[2019-12-27] MEDS ORDERED: diphenhydrAMINE 50 MG/ML SDV IVPUSH ONE (12:44)
[2019-12-27] MEDS ORDERED: Metoclopramide 10 MG/2 ML SDV IVPUSH ONE (12:45)
[2019-12-27] MEDS ORDERED: Sodium Chloride 0.9% 1,000 ML IV ONE (12:52)
--- NOTE | 2019-12-27 12:53 | EDM.PDOC ---
ED HPI GENERAL MEDICAL PROBLEM - General Chief Complaint: Headache Stated Complaint: Headache Time Seen by Provider: 12/27/19 12:30 Source of Information: Reports: Patient History Limitations: Reports: No Limitations - History of Present Illness INITIAL COMMENTS - FREE TEXT/NARRATIVE: Patient is a 59 y/o female who presents for tension headache. She states it starts in the back of the neck and wraps around to the front. Headache is described as tight, constant. Associated nausea. Patient took her medication, but the headache has not improved. 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: 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 History: Reports: Other (See Below) Other 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 History: Hx back injury - arthitis Neurological History: Reports: Headaches, Chronic, Migraines - Infectious Disease History Infectious Disease History: Reports: Chicken Pox - Past Surgical History HEENT Surgical History: Reports: None Female Surgical History: Reports: Section, Endometrial Ablation Social & Family History - Family History Family Medical History: Noncontributory - Tobacco Use Smoking Status *Q: Never Smoker Second Hand Smoke Exposure: No - Caffeine Use Caffeine Use: Reports: Coffee Caffeine Use Comment: Occasional - Recreational Drug Use Recreational Drug Use: No ED ROS GENERAL - Review of Systems Review Of Systems: See Below Constitutional: Reports: No Symptoms HEENT: Reports: No Symptoms Respiratory: Reports: No Symptoms Cardiovascular: Reports: No Symptoms Skin: Reports: No Symptoms Neurological: Reports: Headache ED EXAM, GENERAL - Physical Exam Exam: See Below Exam Limited By: No Limitations General Appearance: Alert, No Apparent Distress Eye Exam: Bilateral Eye: EOMI, PERRL Nose: Normal Inspection Head: Atraumatic, Normocephalic Neck: Normal Inspection, Supple, Non-Tender, Full Range of Motion Respiratory/Chest: No Respiratory Distress Neurological: Alert, Oriented, CN II-XII Intact, No Motor/Sensory Deficits Skin Exam: Warm, Dry Course - Vital Signs Text/Narrative:: Patient given 1 L of NS, reglan 25 mg IV, benadryl 25 mg IV, and toradol 30 mg IV. Her headache is resolved. Will discharge her home with reglan prescription. Follow up with Dr. De Santiago in 1-2 weeks. Last Recorded V/S: Last Vital Signs Temp 36.7 C 12/27/19 12:39 Pulse 83 12/27/19 12:39 Resp 16 12/27/19 12:39 BP 111/74 12/27/19 12:39 Pulse Ox 96 12/27/19 12:39 - Orders/Labs/Meds Meds: Medications Discontinued Medications Generic Name Dose Route Start Last Admin Trade Name Jordanq PRN Reason Stop Dose Admin Diphenhydramine HCl 25 mg 12/27/19 12:44 12/27/19 12:48 Benadryl IVPUSH 12/27/19 12:45 25 mg ONETIME ONE Administration Sodium Chloride 1,000 mls @ 999 mls/hr 12/27/19 12:52 12/27/19 12:56 Normal Saline IV 12/27/19 13:52 999 mls/hr .BOLUS ONE Administration Ketorolac Tromethamine 30 mg 12/27/19 12:43 12/27/19 12:46 Toradol IVPUSH 12/27/19 12:44 30 mg ONETIME ONE Administration Metoclopramide HCl 25 mg 12/27/19 12:45 12/27/19 12:56 Reglan IVPUSH 12/27/19 12:46 25 mg ONETIME ONE Administration Metoclopramide HCl Confirm 12/27/19 13:01 12/27/19 12:57 Reglan Administered 12/27/19 13:02 Not Given Dose 20 mg .ROUTE .STK-MED ONE Metoclopramide HCl Confirm 12/27/19 13:55 Reglan Administered 12/27/19 13:56 Dose 60 mg .ROUTE .STK-MED ONE Departure - Departure Time of Disposition: 14:00 Disposition: Home, Self-Care 01 Condition: Good Clinical Impression: Headache Qualifiers: Headache type: tension-type Headache chronicity pattern: acute headache Intractability: not intractable Qualified Code(s): G44.209 - Tension-type headache, unspecified, not intractable - Discharge Information *PRESCRIPTION DRUG MONITORING PROGRAM REVIEWED*: Not Applicable *COPY OF PRESCRIPTION DRUG MONITORING REPORT IN PATIENT SHANTELLE: Not Applicable Instructions: Metoclopramide tablets, General Headache Without Cause, [id number] Referrals: Leah Pruitt RN [Primary Care Provider] - Forms: ED Department Discharge Care Plan Goals: Take Reglan 25mg with Motrin 600mg, Benadryl 25mg, and a bottle of water every 6-8 hours for migraine. Reglan can also be used for nausea. Sepsis Event Note (ED) - Evaluation Sepsis Screening Result: No Definite Risk - Focused Exam Vital Signs: Vital Signs Temp Pulse Resp BP Pulse Ox 12/27/19 12:39 36.7 C 83 16 111/74 96
[2019-12-27] MEDS ORDERED: Metoclopramide 10 MG/2 ML SDV ONE (13:01)
[2019-12-27] MEDS ORDERED: Metoclopramide 10 MG Tab ONE ×2 (13:55→14:00)
== END 2019-12-27 14:15 | disposition home or self-care (01) ==
LOC: LB.ED 12:15
DX: G44.209 Tension-type headache, unspecified, not intractable (principal); Z91.018 Allergy to other foods; K21.9 Gastro-esophageal reflux disease without esophagitis; Z79.899 Other long term (current) drug therapy
CPT/HCPCS: 96361; 96374; 96375; 99283; A9270; J1200; J1885; J2765; J7030; 99284

== ENCOUNTER 2020-01-28 11:48 | Emergency (ER) | payer BC ==
[2020-01-28] MEDS ORDERED: Ondansetron 4 MG Tab.DIS PO ONE (12:05)
[2020-01-28 12:06] VITALS: BP 121/63; PULSE 88
[2020-01-28] MEDS ORDERED: Ketorolac 60 MG/2 ML SDV IM ONE (12:07)
[2020-01-28] MEDS ORDERED: Ketorolac 60 MG/2 ML SDV ONE (12:14)
[2020-01-28] MEDS ORDERED: Ondansetron 4 MG Tab.DIS ONE (12:14)
--- NOTE | 2020-01-28 12:54 | ER ---
HISTORY OF PRESENT ILLNESS: A 59-year-old lady here with complaints of a headache that wraps around both sides of her head from the forehead around to the back. She states this started about a day ago. She rates it at 6/10 or 7/10. She has tried taking some over-the- counter medications and did take a Fiorinal which she uses for migraines, but she states it has not helped very much. The patient denies any recent falls or injuries. She has not been running a fever. She has not been coughing. No problems with shortness of breath. OBJECTIVE: GENERAL APPEARANCE: The patient is awake and alert. She is somewhat quiet, but she makes good eye contact and answers questions appropriately. VITAL SIGNS: Reviewed. Blood pressure 121/63. She is afebrile. O2 saturation 98%, respirations 18. HEENT: Eyes; pupils equal, round, and reactive to light. EOMs are intact. Head is normocephalic. Oral mucous membranes are moist. Tonsils not enlarged or injected. Pharynx not inflamed. NECK: Supple. LUNGS: Clear. SKIN: Warm and dry initial. INITIAL TREATMENT: Toradol 60 mg given IM and Zofran 4 mg sublingual. This did help the patient's symptoms and after about 30 minutes of monitoring her, her pain was down to minimum and there was no nausea remaining. Dz: Headache. At this point, we will discharge the patient. I will give her a script for a few more Toradol tablets to use as needed as well as Zofran sublingual tablets. She is to take it easy today and resume activity tomorrow hopefully as tolerated. Followup is p.r.n. GLORIA/MODL /[id number] AMOS
== END 2020-01-28 12:35 | disposition home or self-care (01) ==
LOC: LB.ED 11:48
DX: R51.9 Headache, unspecified (principal)
CPT/HCPCS: 96372; 99283; A9270; J1885

== ENCOUNTER 2020-05-21 13:50 | Emergency (ER) | payer BC ==
[2020-05-21] MEDS: Sodium Chloride 0.9% 10 ML Syringe FLUSH PRN (14:30)
--- NOTE | 2020-05-21 14:38 | EDM.PDOC ---
ED HPI GENERAL MEDICAL PROBLEM - General Chief Complaint: General Stated Complaint: dizziness Time Seen by Provider: 05/21/20 15:00 Source of Information: Reports: Patient History Limitations: Reports: No Limitations - History of Present Illness INITIAL COMMENTS - FREE TEXT/NARRATIVE: patient presented to the ER after she felt slightly dizzy while at work. She reports that she was diagnosed with COVID 2-3 weeks ago - and went back to work after 14 days of isolation. No fever or chills. no CP or SOB and no cough. Reports that while at work today, she felt slightly dizzy, but didn't pass out. no palpitation. no weakness or numbness. It resolved on its own. Reports that lately she has been having slight diarrhea. Hasn't been drinking enough liquids. 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: 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 History: Reports: Other (See Below) Other 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 History: Hx back injury - arthitis Neurological History: Reports: Headaches, Chronic, Migraines - Infectious Disease History Infectious Disease History: Reports: Chicken Pox - Past Surgical History HEENT Surgical History: Reports: None Female Surgical History: Reports: Section, Endometrial Ablation Social & Family History - Family History Family Medical History: No Pertinent Family History - Caffeine Use Caffeine Use: Reports: Coffee Caffeine Use Comment: Occasional ED ROS GENERAL - Review of Systems Review Of Systems: See Below Constitutional: Reports: No Symptoms HEENT: Reports: No Symptoms Respiratory: Reports: No Symptoms Cardiovascular: Reports: No Symptoms GI/Abdominal: Reports: Diarrhea 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: Reports: No Symptoms Skin: Reports: No Symptoms Neurological: Reports: No Symptoms Psychiatric: Reports: No Symptoms ED EXAM, GENERAL - Physical Exam Exam: See Below Exam Limited By: No Limitations General Appearance: Alert, No Apparent Distress Respiratory/Chest: No Respiratory Distress Cardiovascular: Normal Peripheral Pulses GI/Abdominal: Normal Bowel Sounds, Soft, Non-Tender Back Exam: Normal Inspection Extremities: Normal Inspection, Normal Range of Motion, Non-Tender Neurological: Alert, Oriented, No Motor/Sensory Deficits Course - Vital Signs Last Recorded V/S: Last Vital Signs Temp 36.2 C 05/21/20 14:00 Pulse 64 05/21/20 16:22 Resp 16 05/21/20 16:22 BP 122/67 05/21/20 15:32 Pulse Ox 99 05/21/20 16:22 - Orders/Labs/Meds Orders: Active Orders 24 hr Category Date Time Status EKG Documentation Completion [RC] ASDIRECTED Care 05/21/20 15:30 Active Sodium Chloride 0.9% [Saline Flush] Med 05/21/20 14:58 Active 10 ml FLUSH ASDIRECTED PRN Peripheral IV Insertion Adult [OM.PC] Routine Oth 05/21/20 14:58 Ordered Medication Orders Sodium Chloride (Saline Flush) 10 ml FLUSH ASDIRECTED PRN PRN Reason: Keep Vein Open Last Admin: 05/21/20 14:30 Dose: 10 ml Documented by: RENETTA Labs: Laboratory Tests 05/21/20 05/21/20 05/21/20 Range/Units 14:00 14:14 14:14 WBC 7.2 (4.0-11.0) K/uL RBC 4.55 (3.80-5.80) M/uL Hgb 14.2 (11.5-16.5) g/dL Hct 42.1 (37.0-47.0) % MCV 93 (76-96) fL MCH 31.2 (27.0-32.0) pg MCHC 33.7 (31.0-35.0) g/dL RDW 13.0 (11.0-16.0) % Plt Count 292 D (150-500) K/uL MPV 9.9 (6.0-10.0) fL D-Dimer, Quantitative (0-400) ng/mL Sodium 139 (136-145) mmol/L Potassium 3.4 L D (3.5-5.1) mmol/L Chloride 102 (98-107) mmol/L Carbon Dioxide 24.7 (21.0-32.0) mmol/L Anion Gap 15.7 H (5.0-15.0) mmol/L BUN 22 (8-26) mg/dL Creatinine 0.91 (0.55-1.02) mg/dL Est Cr Clr Drug Dosing 55.06 mL/min Estimated GFR (MDRD) > 60 (>60) MLS/MIN BUN/Creatinine Ratio 24.2 (6-25) Glucose 111 H (74-100) mg/dL Calcium 9.2 (8.5-10.1) mg/dL Troponin I (0.000-0.060) ng/mL SARS CoV-2 RNA Rapid PAO Positive H 05/21/20 05/21/20 Range/Units 14:20 14:41 WBC (4.0-11.0) K/uL RBC (3.80-5.80) M/uL Hgb (11.5-16.5) g/dL Hct (37.0-47.0) % MCV (76-96) fL MCH (27.0-32.0) pg MCHC (31.0-35.0) g/dL RDW (11.0-16.0) % Plt Count (150-500) K/uL MPV (6.0-10.0) fL D-Dimer, Quantitative 410 H (0-400) ng/mL Sodium (136-145) mmol/L Potassium (3.5-5.1) mmol/L Chloride (98-107) mmol/L Carbon Dioxide (21.0-32.0) mmol/L Anion Gap (5.0-15.0) mmol/L BUN (8-26) mg/dL Creatinine (0.55-1.02) mg/dL Est Cr Clr Drug Dosing mL/min Estimated GFR (MDRD) (>60) MLS/MIN BUN/Creatinine Ratio (6-25) Glucose (74-100) mg/dL Calcium (8.5-10.1) mg/dL Troponin I < 0.017 (0.000-0.060) ng/mL SARS CoV-2 RNA Rapid PAO Meds: Medications Generic Name Dose Route Start Last Admin Trade Name Freq PRN Reason Stop Dose Admin Sodium Chloride 10 ml 05/21/20 14:58 05/21/20 14:30 Saline Flush FLUSH 10 ml ASDIRECTED PRN Administration Keep Vein Open Discontinued Medications Generic Name Dose Route Start Last Admin Trade Name Freq PRN Reason Stop Dose Admin Potassium Chloride 10 meq/ 50 mls @ 50 mls/hr 05/21/20 15:20 05/21/20 15:49 Premix IV 05/21/20 16:19 50 mls/hr ONETIME ONE Administration Sodium Chloride 1,000 mls @ 999 mls/hr 05/21/20 15:20 05/21/20 15:41 Normal Saline IV 05/21/20 16:20 999 mls/hr .BOLUS ONE Administration - Re-Assessments/Exams Free Text/Narrative Re-Assessment/Exam: vitals WNL EKG - NSR, no acute findings labs - normal trop, and no leukocytosis. COVID test is till positive. K was found to be low .. h/o hypokalemia. on K at home. IVF was given and K was replaced by IV. Reports feeling much better after the fluids. Ambulating without dizziness. Was able to have a UOP. was noted to be concentrated which indicates slight dehydration Departure - Departure Time of Disposition: 18:00 Disposition: Home, Self-Care 01 Condition: Good Clinical Impression: COVID-19, Hypokalemia, Dizziness - Discharge Information *PRESCRIPTION DRUG MONITORING PROGRAM REVIEWED*: Not Applicable *COPY OF PRESCRIPTION DRUG MONITORING REPORT IN PATIENT SHANTELLE: Not Applicable Referrals: PCP,None [Primary Care Provider] - Forms: ED Department Discharge Sepsis Event Note (ED) - Focused Exam Vital Signs: Vital Signs Temp Pulse Resp BP Pulse Ox 05/21/20 16:22 64 16 99 05/21/20 15:32 67 20 122/67 99 05/21/20 14:00 36.2 C 68 16 120/69 100 - Problem List & Annotations (1) COVID-19 SNOMED Code(s): 696667001 Code(s): U07.1 - COVID-19 Status: Acute Priority: Medium Current Visit: Yes (2) Dizziness SNOMED Code(s): 155334383, 300800153 Code(s): R42 - DIZZINESS AND GIDDINESS Status: Acute Priority: Medium Current Visit: Yes (3) Hypokalemia SNOMED Code(s): 38847654 Code(s): E87.6 - HYPOKALEMIA Status: Acute Priority: Medium Current Visit: Yes - Problem List Review Problem List Initiated/Reviewed/Updated: Yes - My Orders Last 24 Hours: My Active Orders 05/21/20 14:58 Sodium Chloride 0.9% [Saline Flush] 10 ml FLUSH ASDIRECTED PRN Peripheral IV Insertion Adult [OM.PC] Routine 05/21/20 15:30 EKG Documentation Completion [RC] ASDIRECTED - Assessment/Plan Last 24 Hours: My Active Orders 05/21/20 14:58 Sodium Chloride 0.9% [Saline Flush] 10 ml FLUSH ASDIRECTED PRN Peripheral IV Insertion Adult [OM.PC] Routine 05/21/20 15:30 EKG Documentation Completion [RC] ASDIRECTED Plan: - increase fluids intake to prevent dehydration - continue with potassium replacement at home - recommend to continue with self isolation to prevent the spread of infection - return to the ER if symptoms recurred or if got worse
[2020-05-21] MEDS: Sodium Chloride 0.9% 1,000 ML IV ONE (15:41)
[2020-05-21] MEDS: Potassium Chloride Riders 10 MEQ in Premix Bag 1 BAG IV ONE (15:49)
[2020-05-21] MEDS: Lactated Ringers 1,000 ML IV ONE (17:08)
[2020-05-21 18:09] VITALS: BP 105/50; PULSE 75
== END 2020-05-21 18:30 | disposition home or self-care (01) ==
LOC: LB.ED 13:50
DX: U07.1 COVID-19 (principal); E87.6 Hypokalemia; K21.9 Gastro-esophageal reflux disease without esophagitis; Z79.899 Other long term (current) drug therapy; Z91.018 Allergy to other foods
CPT/HCPCS: 36415; 80048; 84484; 85027; 85379; 93005; 96365; 99283; 99284-25; J3480; J7030; J7120; U0002

== ENCOUNTER 2020-07-12 18:50 | Emergency (ER) | payer BC ==
--- NOTE | 2020-07-12 18:56 | EDM.PDOC ---
ED HPI GENERAL MEDICAL PROBLEM - General Chief Complaint: General Stated Complaint: FOOT PAIN Time Seen by Provider: 07/12/20 18:50 Source of Information: Reports: Patient History Limitations: Reports: No Limitations - History of Present Illness INITIAL COMMENTS - FREE TEXT/NARRATIVE: Ms. Soto is a 59 YOHF here for falling and injuring her Rt foot today. ROM is decreased. No erythema or bruising noted. No swelling. ROBIN was falling off steps. She did not hit her head or have LOC. She has not taken anything for her pain. PMH of GERD. No other concerns. Normal HRR, Lungs CTA, No fever. No abd pain or guarding. Onset: Today Onset Date: 07/12/20 Duration: Minutes:, Constant Location: Reports: Lower Extremity, Right Quality: Reports: Ache, Dull Severity: Moderate Improves with: Reports: None Worsens with: Reports: None Context: Reports: Other (Fall ) Associated Symptoms: Reports: No Other Symptoms Right Ankle Pain Score (Numeric/FACES): 4 - Related Data Allergies Allergy/AdvReac Type Severity Reaction Status Date / Time corn meal Allergy Unknown Hives Uncoded 01/28/20 12:00 Home Meds: Home Meds Omeprazole 20 mg PO ACBREAKFAST 02/04/19 [History] raNITIdine HCL [Zantac] 150 mg PO BID 02/04/19 [History] Past Medical History HEENT History: Reports: Impaired Vision Gastrointestinal History: Reports: GERD Other Gastrointestinal History: has been having very freq diarrheal stools Genitourinary History: Reports: Renal Calculus, 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: 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 History: Reports: Other (See Below) Other 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 History: Hx back injury - arthitis Neurological History: Reports: Headaches, Chronic, Migraines - Infectious Disease History Infectious Disease History: Reports: Chicken Pox, Measles, Mumps - Past Surgical History HEENT Surgical History: Reports: None Female Surgical History: Reports: Section, Endometrial Ablation Social & Family History - Family History Family Medical History: No Pertinent Family History - Caffeine Use Caffeine Use: Reports: Coffee Caffeine Use Comment: Occasional ED ROS GENERAL - Review of Systems Review Of Systems: See Below 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: Reports: Foot Pain ED EXAM, GENERAL - Physical Exam Exam: See Below Exam Limited By: No Limitations General Appearance: Alert, WD/WN, No Apparent Distress Eye Exam: Bilateral Eye: PERRL Nose: Normal Inspection, Normal Mucosa Throat/Mouth: Normal Inspection, Normal Lips, Normal Oropharynx Head: Atraumatic, Normocephalic Neck: Normal Inspection, Supple, Non-Tender Respiratory/Chest: No Respiratory Distress, Lungs Clear, Normal Breath Sounds Cardiovascular: Normal Peripheral Pulses, Regular Rate, Rhythm, No Edema GI/Abdominal: Normal Bowel Sounds, Soft, Non-Tender (Female) Exam: Deferred Rectal (Female) Exam: Deferred Back Exam: Normal Inspection Extremities: Other (Rt foot pain, limited ROM) Neurological: Alert, Oriented, CN II-XII Intact Psychiatric: Normal Affect, Normal Mood Skin Exam: Warm, Dry, Intact, Normal Color Lymphatic: No Adenopathy Course - Vital Signs Last Recorded V/S: Last Vital Signs Temp 37.1 C 07/12/20 18:50 Pulse 81 07/12/20 18:50 Resp 18 07/12/20 18:50 BP 128/86 07/12/20 18:50 Pulse Ox 99 07/12/20 18:50 - Orders/Labs/Meds Orders: Active Orders 24 hr Category Date Time Status Ankle 2V Rt [CR] Stat Exams 07/12/20 18:50 Taken Foot Comp Min 3V Rt [CR] Stat Exams 07/12/20 18:50 Taken Departure - Departure Time of Disposition: 20:15 Disposition: Home, Self-Care 01 Condition: Good Clinical Impression: Pain associated with accessory navicular bone of right foot Right ankle sprain Qualifiers: Encounter type: initial encounter Involved ligament of ankle: other ligament Qualified Code(s): S93.491A - Sprain of other ligament of right ankle, initial encounter - Discharge Information *PRESCRIPTION DRUG MONITORING PROGRAM REVIEWED*: Not Applicable *COPY OF PRESCRIPTION DRUG MONITORING REPORT IN PATIENT SHANTELLE: Not Applicable Instructions: Ankle Sprain, [id number] Forms: ED Department Discharge Care Plan Goals: Rest, Ice, elevate Take OTC Tylenol and Ibuprofen for pain Return to ED or PCP for new or worsening symptoms. Wear wrap as needed with sturdy shoe and or boot. F/ U with Dr De Santiago or return to ED for new or worsening symptoms. Sepsis Event Note (ED) - Focused Exam Vital Signs: Vital Signs Temp Pulse Resp BP Pulse Ox 07/12/20 18:50 37.1 C 81 18 128/86 99 - Problem List & Annotations (1) Ankle sprain SNOMED Code(s): 04580903 Code(s): S93.409A - SPRAIN OF UNSP LIGAMENT OF UNSPECIFIED ANKLE, INIT ENCNTR Status: Acute Priority: High Qualifiers: Encounter type: initial encounter Involved ligament of ankle: other ligament Laterality: right Qualified Code(s): S93.491A - Sprain of other ligament of right ankle, initial encounter - Problem List Review Problem List Initiated/Reviewed/Updated: Yes - My Orders Last 24 Hours: My Active Orders 07/12/20 18:50 Ankle 2V Rt [CR] Stat Foot Comp Min 3V Rt [CR] Stat - Assessment/Plan Last 24 Hours: My Active Orders 07/12/20 18:50 Ankle 2V Rt [CR] Stat Foot Comp Min 3V Rt [CR] Stat Assessment:: Ankle sprain Right Plan: Rest, Ice, elevate Take OTC Tylenol and Ibuprofen for pain Return to ED or PCP for new or worsening symptoms. Wear boot and or wrap as needed.
[2020-07-12 19:23] VITALS: BP 128/86; PULSE 81
--- NOTE | 2020-07-13 07:37 | CR ---
DATE OF SERVICE: 07/12/20 CLINICAL DATA: fall RIGHT ANKLE: There is mild spurring of the medial malleolus of the distal tibia. No acute fracture or dislocation. No focal lytic or blastic bone lesions. [id number] [facility]
--- NOTE | 2020-07-13 07:40 | CR ---
DATE OF SERVICE: 07/12/20 CLINICAL DATA: fall RIGHT FOOT: No acute fracture or dislocation. No lytic or blastic bone lesions. There are plantar and posterior calcaneal spurs. There is ossification of the distal Achilles tendon. [id number] [facility]
== END 2020-07-12 20:30 | disposition home or self-care (01) ==
LOC: LB.ED 18:50
DX: S93.491A Sprain of other ligament of right ankle, initial encounter (principal); M76.821 Posterior tibial tendinitis, right leg; K21.9 Gastro-esophageal reflux disease without esophagitis; Z79.899 Other long term (current) drug therapy; Z91.018 Allergy to other foods; W10.9XXA Fall (on) (from) unspecified stairs and steps, initial encounter
CPT/HCPCS: 73600-RT; 73630-RT; 99283-25

== ENCOUNTER 2020-12-28 11:59 | Emergency (ER) | payer BC ==
[2020-12-28 12:13] VITALS: BP 112/68; PULSE 85
--- NOTE | 2020-12-28 12:40 | EDM.PDOC ---
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 She went to the restroom to find that something was protruding from her vagina. She denies any pain. She states that she has been completely well of late with no fever, cough, other concerns or complaints. 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: 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 History: Reports: Other (See Below) Other 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 History: Hx back injury - arthitis Neurological History: Reports: Headaches, Chronic, Migraines - Infectious Disease History Infectious Disease History: Reports: Chicken Pox, Measles, Mumps - Past Surgical History HEENT Surgical History: Reports: None Female Surgical History: Reports: Section, Endometrial Ablation Social & Family History - Family History Family Medical History: No Pertinent Family History - Caffeine Use Caffeine Use: Reports: None Caffeine Use Comment: Occasional ED ROS GENERAL - Review of Systems Review Of Systems: Comprehensive ROS is negative, except as noted in HPI. ED EXAM, RENAL/ - Physical Exam Exam: See Below Exam Limited By: No Limitations General Appearance: Alert, WD/WN, No Apparent Distress Eye Exam: Bilateral Eye: PERRL Ears: Normal External Exam (Currently are you working all weekend sunday night into the ) Nose: Normal Inspection (To bed) Head: Atraumatic, Normocephalic Neck: Normal Inspection Respiratory/Chest: No Respiratory Distress, No Accessory Muscle Use (Female) Exam: Normal External Exam, Other (Soft tissue mass noted at vaginal introitus. Easily reduced.) Neurological: Alert, Oriented Course - Vital Signs Last Recorded V/S: Last Vital Signs Temp 36.9 C 12/28/20 12:11 Pulse 85 12/28/20 12:11 Resp 18 12/28/20 12:11 BP 112/68 12/28/20 12:11 Pulse Ox 98 12/28/20 12:11 - Re-Assessments/Exams Free Text/Narrative Re-Assessment/Exam: 12/28/20 12:45 Patient presents emergency department for evaluation of vaginal prolapse. The vagina was easily reduced and moved back into the vaginal canal. She has no pain or other concerns with this. While she was in the emergency department we were able to secure her an appointment with DITCH REPAIRER for next week. She was also given instructions on Kegel exercises to do in the meantime. She was instructed to return to the ER as needed. 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
== END 2020-12-28 12:46 | disposition home or self-care (01) ==
LOC: LB.ED 11:59
DX: N81.10 Cystocele, unspecified (principal); Z91.018 Allergy to other foods; K21.9 Gastro-esophageal reflux disease without esophagitis; Z79.899 Other long term (current) drug therapy
CPT/HCPCS: 99283

== ENCOUNTER 2021-02-10 06:54 | Emergency (ER) | payer BC ==
[2021-02-10] MEDS ORDERED: HYDROmorphone 2 MG/ML SDV IM ONE (07:18)
[2021-02-10] MEDS ORDERED: Ondansetron 4 MG Tab.DIS PO ONE (07:19)
--- NOTE | 2021-02-10 09:04 | EDM.PDOC ---
ED HPI GENERAL MEDICAL PROBLEM - General Chief Complaint: Headache Stated Complaint: MIGRAINE Time Seen by Provider: 02/10/21 07:15 - History of Present Illness INITIAL COMMENTS - FREE TEXT/NARRATIVE: Pt is here with C/O migraine H/A she has had for 2 days. She has been using Excedrine but it is not helping. She has nausea but no vomiting. No recent falls or injuries. 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 History: Reports: Other (See Below) Other 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 History: Hx back injury - arthitis Neurological History: Reports: Headaches, Chronic, Migraines - Infectious Disease History Infectious Disease History: Reports: Chicken Pox, Measles, Mumps - Past Surgical History HEENT Surgical History: Reports: None GI Surgical History: Reports: Appendectomy Female Surgical History: Reports: Section, Endometrial Ablation Social & Family History - Family History Family Medical History: No Pertinent Family History - Caffeine Use Caffeine Use: Reports: None Caffeine Use Comment: Occasional ED ROS GENERAL - Review of Systems Review Of Systems: Comprehensive ROS is negative, except as noted in HPI. Neurological: Reports: Headache (with nausea.) ED EXAM, GENERAL - Physical Exam Exam: See Below Course - Orders/Labs/Meds Meds: Medications Discontinued Medications Generic Name Dose Route Start Last Admin Trade Name Freq PRN Reason Stop Dose Admin Hydromorphone HCl 1 mg 02/10/21 07:18 02/10/21 07:20 Hydromorphone 2 Mg/Ml Sdv IM 02/10/21 07:19 1 mg ONETIME ONE Administration Ondansetron HCl 4 mg 02/10/21 07:19 02/10/21 07:15 Ondansetron 4 Mg Tab.Dis PO 02/10/21 07:20 4 mg ONETIME ONE Administration - Re-Assessments/Exams Free Text/Narrative Re-Assessment/Exam: 02/10/21 09:02 Dilaudid and Zofran wew given. I re checked the pt in 20 minutes and she is doing better. 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 Continue Excedrine prn. She has Zofran at home as well. Rest today, increase activity as tolerated. Follow up prn. Departure - Departure Time of Disposition: 07:50 Disposition: Home, Self-Care 01 Condition: Good Clinical Impression: Migraine Qualifiers: Migraine type: unspecified Status migrainosus presence: with status migrainosus Intractability: intractable Qualified Code(s): G43.911 - Migraine, unspecified, intractable, with status migrainosus - Discharge Information *PRESCRIPTION DRUG MONITORING PROGRAM REVIEWED*: No *COPY OF PRESCRIPTION DRUG MONITORING REPORT IN PATIENT SHANTELEL: No Instructions: Migraine Headache, [id number] Referrals: PCP,None [Primary Care Provider] - Forms: ED Department Discharge Additional Instructions: Go home and rest the day in dark. Return to ED if symptoms increase. Follow up with provider to get migraine med refilled. Sepsis Event Note (ED) - Evaluation Sepsis Screening Result: No Definite Risk
== END 2021-02-10 07:44 | disposition home or self-care (01) ==
LOC: LB.ED 06:54
DX: G43.911 Migraine, unspecified, intractable, with status migrainosus (principal); K21.9 Gastro-esophageal reflux disease without esophagitis; Z91.018 Allergy to other foods; Z79.899 Other long term (current) drug therapy
CPT/HCPCS: 96372; 99283; A9270; J1170

== ENCOUNTER 2021-07-02 08:27 | Emergency (ER) | payer BC ==
[2021-07-02] MEDS ORDERED: Acetaminophen/HYDROcodone 325-5 MG Tab PO ONE (09:00)
[2021-07-02] MEDS ORDERED: Acetaminophen/HYDROcodone 325-5 MG Tab ONE ×2 (09:00→09:10)
[2021-07-02 10:27] VITALS: BP 138/62; PULSE 89
== END 2021-07-02 09:27 | disposition home or self-care (01) ==
LOC: LB.ED 08:27
DX: M54.50 Low back pain, unspecified (principal)
CPT/HCPCS: 72100; 99283; A9270

== ENCOUNTER 2022-09-19 12:18 | Emergency (ER) | payer BC ==
[2022-09-19 12:35] VITALS: BP 133/63; PULSE 74
[2022-09-19] MEDS: Sodium Chloride 0.9% 1,000 ML IV SCH (13:21)
[2022-09-19] MEDS: diphenhydrAMINE 50 MG/ML SDV IVPUSH ONE (13:26)
[2022-09-19] MEDS: Ketorolac 30 MG/ML SDV IVPUSH ONE (13:26)
[2022-09-19] MEDS: Metoclopramide 10 MG/2 ML SDV IVPUSH ONE (13:26)
[2022-09-19 13:45] LABS: ANION GAP 15.2 mmol/L (5.0-15.0); BUN/CREATININE RATIO 31.4 (6-25); CALCIUM 8.9 mg/dL (8.5-10.1); CARBON DIOXIDE,CO2 25.5 mmol/L (21.0-32.0); CREATININE 0.86 mg/dL (0.55-1.02); EST CRCL DRUG DOSING (CG) 56.11 mL/min; POTASSIUM,K 3.7 mmol/L (3.5-5.1)
[2022-09-19] MEDS: Metoclopramide 10 MG/2 ML SDV ONE (16:15)
[2022-09-19] MEDS: Ketorolac 30 MG/ML SDV ONE (16:15)
[2022-09-19] MEDS: diphenhydrAMINE 50 MG/ML SDV ONE (16:15)
== END 2022-09-19 14:29 | disposition home or self-care (01) ==
LOC: LB.ED 12:18
DX: G44.209 Tension-type headache, unspecified, not intractable (principal); K21.9 Gastro-esophageal reflux disease without esophagitis; Z91.018 Allergy to other foods; Z79.899 Other long term (current) drug therapy
CPT/HCPCS: 36415; 70450; 80048; 96361; 96374; 96375; 99284-25; J1200; J1885; J2765; J7030

== ENCOUNTER 2023-01-25 07:59 | Emergency (ER) | payer BC ==
[2023-01-25 08:16] VITALS: BP 117/67; PULSE 74
[2023-01-25] MEDS: Ketorolac 60 MG/2 ML SDV IM ONE (08:37)
== END 2023-01-25 08:47 | disposition home or self-care (01) ==
LOC: LB.ED 07:59
DX: M54.50 Low back pain, unspecified (principal); K21.9 Gastro-esophageal reflux disease without esophagitis; Z87.891 Personal history of nicotine dependence; Z91.018 Allergy to other foods; Z79.899 Other long term (current) drug therapy
CPT/HCPCS: 96372; 99283; J1885

== ENCOUNTER 2023-09-28 10:28 | Emergency (ER) | payer BC ==
[2023-09-28 12:17] LABS: BASOPHILS ABSOLUTE AUTO 0.03 K/uL (0.02-0.10); BASOPHILS PERCENT AUTO 0.3 % (0.0-0.5); EOSINOPHILS ABSOLUTE AUTO 0.06 K/uL (0.04-0.40); EOSINOPHILS PERCENT AUTO 0.6 % (1.0-5.0); HEMATOCRIT 46.5 % (37.0-47.0); HEMOGLOBIN 15.3 g/dL (11.5-16.5); LYMPHOCYTES ABSOLUTE AUTO 2.09 K/uL (1.50-4.00); LYMPHOCYTES PERCENT AUTO 21.6 % (20.0-40.0); MEAN CORPUSCULAR HGB CONC 32.9 g/dL (31.0-35.0); MEAN CORPUSCULAR VOLUME 94 fL (76-96); MEAN PLATELET VOLUME 9.8 fL (6.0-10.0); MONOCYTES ABSOLUTE AUTO 0.71 K/uL (0.20-0.80); MONOCYTES PERCENT AUTO 7.3 % (3.0-10.0); NEUTROPHILS ABSOLUTE AUTO 6.79 K/uL (2.00-7.50); NEUTROPHILS PERCENT AUTO 70.2 % (45.0-70.0); PLATELET COUNT,PLT 296 K/uL (150-500); RED BLOOD CELL COUNT 4.94 M/uL (3.80-5.80); RED CELL DISTRIBUTION WIDTH 14.3 % (11.0-16.0); WHITE BLOOD CELL COUNT,WBC 9.7 K/uL (4.0-11.0)
[2023-09-28 12:33] VITALS: BP 129/75; PULSE 78
[2023-09-28 12:37] LABS: A/G RATIO 1.2 (0.8-2.0); ALANINE AMINOTRANSFERASE,ALT 42 U/L (12-78); ALBUMIN 4.2 g/dL (3.4-5.0); ALKALINE PHOSPHATASE 81 U/L (46-116); ANION GAP 15.5 mmol/L (5.0-15.0); ASPARTATE AMNIOTRANSFERASE,AST 16 U/L (15-37); BILIRUBIN TOTAL 0.4 mg/dL (0.0-1.0); BLOOD UREA NITROGEN,BUN 16 mg/dL (8-26); BUN/CREATININE RATIO 19.8 (6-25); CALCIUM 9.5 mg/dL (8.5-10.1); CARBON DIOXIDE,CO2 26.6 mmol/L (21.0-32.0); CHLORIDE,CL 104 mmol/L (98-107); CREATININE 0.81 mg/dL (0.55-1.02); ESTIMATED GFR 82 mL/min (>60); GLUCOSE RANDOM 103 mg/dL (74-100); POTASSIUM,K 4.1 mmol/L (3.5-5.1); PROTEIN TOTAL,TP 7.6 g/dL (6.4-8.2); SODIUM,NA 142 mmol/L (136-145)
[2023-09-28 13:04] LABS: CORONAVIRUS COVID-19 NAA NEGATIVE (NEGATIVE); INFLUENZA A NAA NEGATIVE (NEGATIVE); INFLUENZA B NAA NEGATIVE (NEGATIVE)
== END 2023-09-28 13:37 | disposition home or self-care (01) ==
LOC: LB.ED 10:28
DX: R42 Dizziness and giddiness (principal); R25.1 Tremor, unspecified; Z79.899 Other long term (current) drug therapy
CPT/HCPCS: 0240U; 36415; 80053; 85025; 99284

== ENCOUNTER 2024-01-31 09:50 | Emergency (ER) | payer SELFPAY ==
[2024-01-31] MEDS ORDERED: Sodium Chloride 0.9% 10 ML Syringe FLUSH PRN (10:15)
[2024-01-31] MEDS: Sodium Chloride 0.9% 1,000 ML IV SCH (10:27)
[2024-01-31] MEDS: Ondansetron 4 MG/2 ML SDV IVPUSH ONE (10:27)
[2024-01-31] MEDS: SUMAtriptan 6 MG/0.5 ML SDV SUBCUT ONE (10:29)
[2024-01-31] MEDS: SUMAtriptan 6 MG/0.5 ML SDV ONE (10:33)
[2024-01-31] MEDS: Ondansetron 4 MG/2 ML SDV ONE (10:33)
[2024-01-31 15:23] VITALS: BP 146/53; PULSE 67
== END 2024-01-31 12:05 | disposition home or self-care (01) ==
LOC: LB.ED 09:50
DX: G43.911 Migraine, unspecified, intractable, with status migrainosus (principal); K21.9 Gastro-esophageal reflux disease without esophagitis; Z90.49 Acquired absence of other specified parts of digestive tract; Z91.018 Allergy to other foods; Z79.899 Other long term (current) drug therapy
CPT/HCPCS: 96372; 96374; 99283; 99283-25; J2405; J3030; J7030